=== PATIENT | female | born 1940 | race Caucasian/White ===

== ENCOUNTER 2021-10-12 10:09 | Outpatient (CLI) | payer MEDICARE, OTHER, SELFPAY ==
--- NOTE | 2021-10-12 10:20 | CT_ITS ---
WS: [id number] CT CHEST WITH INTRAVENOUS CONTRAST HISTORY: LUNG NODULE TECHNIQUE: Contiguous 5 mm axial imaging performed on the thorax. Coronal and sagittal reformats are submitted. All CT scans at [facility] use at least one of these dose optimization techniques: automated exposure control; mA and/or kV adjustment per patient size (includes targeted exams where dose is matched to clinical indication); or iterative reconstruction. CONTRAST: Omnipaque 350; 95 mL IV. DLP: 674.93 mGy.cm COMPARISON: 11/13/2016 Lungs and central airway: Long-term stability ovoid and slightly lobulated nodule LEFT lower lobe wit h a maximum diameter of 14 mm. Stable nodules along the RIGHT major and minor fissures. Pleura: Normal. No pleural effusion. Heart and pericardium: Mildly enlarged heart. There is a small circumferential pericardial effusion w hich has progressed in size since the prior study. Effusion measures up to 6 mm. Moderate coronary ar opal atherosclerotic plaque. Mediastinum and melissa: No mediastinum or hilar adenopathy. Vessels: Moderate atherosclerosis aorta. Pulmonary artery size is normal. No filling defects proximal ly. Chest wall and lower neck: No soft tissue masses. Upper abdomen: Visualized gallbladder is negative. 3 mm hypodense nodule in the periphery RIGHT lobe of the liver. No adrenal mass. There is a very large hiatal hernia. Greater than 50% of the stomach i s above the diaphragm. Diffuse fatty replacement of the pancreas. Previously described nodule in the pancreas is not well visualized today. Atherosclerotic plaque continues into the suprarenal aorta. Osseous structures: Diffuse osteopenia. Mild concave deformity superior endplate of T12. CT/CT chest w con* [id number] IMPRESSION: 1. Long-term stability 14 mm noncalcified nodule LEFT lower lobe. 2. Moderate atherosclerotic plaque within the coronary arteries and aorta. 3. Small circumferential pericardial effusion has increased since 2017. 4. Large hiatal hernia.
[2021-10-12] MEDS: iohexol 350 mg/mL 100 mL Btl IV (10:42)
[2021-10-12 11:00] LABS: Blood Urea Nitrogen 10 mg/dL (8-23)
== END 2021-10-12 10:10 | disposition home or self-care (01) ==
LOC: RAD 10:14
PROVIDERS: Radiology Neuroradiology; PCP Family Medicine; Visit Provider Family Medicine
DX: R91.1 Solitary pulmonary nodule (principal); I25.10 Atherosclerotic heart disease of native coronary artery without angina pectoris; I31.3 Pericardial effusion (noninflammatory); K44.9 Diaphragmatic hernia without obstruction or gangrene
CPT/HCPCS: 71260; 82565; 84520

== ENCOUNTER 2021-11-08 13:14 | Outpatient (CLI) | payer MEDICARE, OTHER, SELFPAY ==
--- NOTE | 2021-11-08 13:26 | XR_ITS ---
WS: [id number] DEXA (DUAL ENERGY X-RAY ABSORPTIOMETRY) Bone mineral density was performed using a [employer] machine. HISTORY: POSTMENOPAUSAL COMPARISON: 02/05/2019 Lumbar spine BMD (L1-L4): 1.371 g/cm2 T score: 1.6 Z score: 3.4 Left forearm BMD: 0.877 g/cm2. T score: 0.0 Z score: 2.7 RIGHT hip BMD: 0. 891 g/cm2. T score: 0.9 Z score: 1.0 10 year probability of a major osteoporotic fracture is 13.4%. Compared to the prior study from 02/05/2019. Lumbar spine bone mineral density has increased by 3.2%. Bilateral hips bone mineral density has decreased by 1.5%. LEFT forearm bone mineral density has decreased by 1.6%. XR/XR DEXA axial skeleton* [id number] IMPRESSION: NORMAL BONE MINERAL DENSITY based upon the WHO classification for females. Significant increase in bone mineral density within the lumbar spine. No change otherwise.
--- NOTE | 2021-11-08 13:27 | USCV_ITS ---
Geoffrey Haven Age: 80 Gender: F : 1940 Exam Date: 11/08/2021 14:06 Ordering Phys: Trent Veras MD Technologist: Exam Location: [facility] [place] Indication: percardial effusion BP: 110 / 67 HR: 60 Rhythm: Sinus Technical Quality: MEASUREMENTS (Male / Female) Normal Values 2D ECHO LV Diastolic Diameter PLAX 4.2 cm 4.2 - 5.9 / 3.9 - 5.3 cm LV Systolic Diameter PLAX 2.8 cm IVS Diastolic Thickness 0.9 cm 0.6 - 1.0 / 0.6 - 0.9 cm IVS Systolic Thickness 1.4 cm LVPW Diastolic Thickness 0.9 cm 0.6 - 1.0 / 0.6 - 0.9 cm LVPW Systolic Thickness 1.1 cm LVOT Diameter 2.0 cm LV Ejection Fraction 2D Teich 61.2 % LV Ejection Fraction MOD 2C 60.6 % LV Ejection Fraction 2C AL 60.6 % LA Diameter 4.2 cm Aorta at Sinotubular Diameter 2.3 cm IVC Diameter 1.9 cm M-MODE Aortic Annulus Diameter 3.1 cm LA Ao Ratio MM 1.5 MV E Point Septal Separation 1.1 cm DOPPLER AV Peak Velocity 116.0 cm/s LVOT Peak Velocity 104.0 cm/s AV Area Cont Eq vti 3.3 cm squared AV Area Cont Eq pk 2.9 cm squared MV Area PHT 5.0 cm squared Mitral E to A Ratio 0.9 MV E' Velocity 60.0 cm/s Mitral E to MV E' Ratio 14.0 Mitral E to LV E' Lateral Ratio 13.7 Mitral E to LV E' Septal Ratio 14.4 TR Peak Velocity 189.0 cm/s TR Peak Gradient 14.3 mmHg TV Peak E Velocity 63.0 cm/s Right Atrial Pressure 3.0 mmHg Pulmonary Artery Systolic Pressu 17.3 mmHg PV Peak Velocity 94.0 cm/s FINDINGS Left Ventricle Normal left ventricular size. LV systolic function is normal with EF of 60-65%. No regional wall motion abnormalities. Normal disatolic function Right Ventricle The right ventricle is normal in size and function. Right Atrium The right atrium is normal in size. Left Atrium The left atrium is normal in size. Mitral Valve Structurally normal mitral valve without significant stenosis or prolapse. There is mild mitral regurgitation. Aortic Valve Structurally normal aortic valve without significant sclerosis or stenosis. There is mild aortic regurgitation. Tricuspid Valve Structurally normal tricuspid valve without significant stenosis. Trace tricuspid regurgitation. Insufficient TR jet to calculate RVSP Pulmonic Valve Structurally normal pulmonic valve without significant stenosis. There is no pulmonic regurgitation. Pericardium Small sized pericardial effusion Aorta Normal ascending aorta dimension. IVC CONCLUSIONS LV systolic function is normal with EF of 60-65% Normal diastolic function Mild mitral regurgitation Mild aortic regurgitation Trace tricuspid regurgitation Small sized pericardial effusion is seen Compared to prior echocardiogram from 2017, patient has small sized pericardial effusion, mild aortic and mild mitral regurgitation. Margarito Valles MD (Electronically Signed) Final Date: 18 Nov 2021 23:22 S
== END 2021-11-08 13:15 | disposition home or self-care (01) ==
LOC: RAD 13:18
PROVIDERS: PCP Family Medicine; Visit Provider Family Medicine
DX: Z78.0 Asymptomatic menopausal state (principal)
CPT/HCPCS: 77080; 93306

== ENCOUNTER 2022-01-28 03:25 | Inpatient (IN) | payer MEDICARE, OTHER, SELFPAY ==
[2022-01-28] VITALS (14 sets, daily range): BP systolic 97–173; BP diastolic 54–85; PULSE 65–99; RESP 16–22; TEMP 36.7–38.8; O2SAT 88–98; BMI 26.8
--- NOTE | 2022-01-28 03:27 | XRR_ITS ---
PROCEDURE INFORMATION: Exam: XR Chest Exam date and time: 01/28/2022 3:37 AM Age: 81 years old Clinical indication: Cough and fever; Patient HX: Congestion x 3 weeks with worsening cough TECHNIQUE: Imaging protocol: Radiologic exam of the chest. Views: 1 view. COMPARISON: CT chest w con* [id number] 10/12/2021 10:55 AM FINDINGS: Lungs: Patchy airspace opacities in the mid and lower left lung. Pleural spaces: Unremarkable. No pleural effusion. No pneumothorax. Heart/Mediastinum: Moderate hiatal hernia. Bones/joints: Unremarkable. XR/XR chest 1V portable [id number] IMPRESSION: Pneumonia in the mid and lower left lung.
--- NOTE | 2022-01-28 03:41 | ED_ITS ---
HPI - Nausea/Vomiting/Diarrhea General: Chief complaint: Nausea/Vomiting/Diarrhea Stated complaint: Shaking, fever, N/V Time Seen by Provider: 01/28/22 03:26 Source: patient Mode of arrival: ambulatory Limitations: no limitations History of Present Illness: 81-year-old female states that she has had cough congestion over the last 2 weeks. States she saw her PCP 2 weeks ago started on antibiotics which she is finished states that over the last 2 days especially tonight her cough is worsened. She is also febrile here with body aches. She states she has had nausea and vomiting tonight as well. Denies any worsening improving factors denies any abdominal or chest pain. Associated nausea: Yes Associated symtoms: Reports nausea; Denies chest pain, dysuria or headache(s) Review of Systems Const: Reports: fever(s), chills and body aches; Denies: change in appetite Eyes: Denies: blurry vision or eye discomfort ENMT: Denies: throat pain or dental pain Card: Denies: chest pain Resp: Reports: non-productive cough; Denies: dyspnea GI: Reports: nausea and vomiting; Denies: abdominal pain or diarrhea : Denies: dysuria Musc: Denies: neck pain or back pain Skin/Breast: Denies: rash Neuro: Denies: headache(s) Psych: Denies: depression Mando/Lymph: Denies: easy bruising All/Imm: Denies: urticaria PFSH ED PFSH: Medical History (Updated 01/28/22 @ 04:12 by Lazaro Arellano MD) No pertinent past medical history Social History (Updated 01/28/22 @ 03:42 by Lazaro Arellano MD) Substance/Drug Use: never Physical Exam Const: COMMON NORMALS: patient oriented x3 GENERAL APPEARANCE: ill appearin g HENMT: COMMON NORMALS: normocephalic and atraumatic HEAD & SCALP: normocephalic and atraumatic Eye: COMMON NORMALS: Equal, round and reactive pupils present and EOMs intact bilaterally PUPIL: Yes Equal, round and reactive pupils present Neck/C-Spine: COMMON NORMALS: full ROM and supple Chest: COMMONS NORMALS: normal inspection of the chest and normal palpation of entire chest wall Resp: COMMON NORMALS: No retractions and No use of accessory muscles EFFORT & INSPECTION: Yes respiratory distress AUSCULTATION: rales on the left Cardio: COMMON NORMALS: regular rate, regular rhythm and No murmurs present (Cardio) RATE: regular rate RHYTHM: regular rhythm GI: COMMON NORMALS: Normal to inspection, nondistended, normoactive bowel sounds present, Soft to palpation, non-tender and no masses PALPATION: Yes Soft to palpation Extremity: COMMON NORMALS: normal to inspection and full ROM Neuro: COMMON NORMALS: patient oriented x3, moves all extremities and no focal motor deficits Psych: COMMON NORMALS: mental status grossly normal, Normal thought process present and cooperative THOUGHT PROCESS: Normal thought process present Skin: COMMON NORMALS: no rashes or lesions noted and no wounds GENERAL SKIN EXAM: no rashes or lesions noted Course Vital Signs: Vital signs: Vital Signs Temperature 101.9 F H 01/28/22 03:26 Pulse Rate 99 01/28/22 03:26 Respiratory Rate 22 H 01/28/22 03:26 Blood Pressure 173/85 01/28/22 03:26 Pulse Oximetry 90 01/28/22 03:26 Oxygen Delivery Me thod 01/28/22 03:26 MDM - Nausea/Vomiting/Diarrhea Medical Decision Making Patient presents with cough fever x-ray does show a left upper lobe pneumonia patient has some hypoxia as well spoke to hospitalist will admit patient started on IV antibiotics. Lab Data : 01/28/22 03:40 01/28/22 03:40 Laboratory Results WBC 24.4 10^3/uL (4.0-10.0) H 01/28/22 03:40 RBC 5.18 10^6/uL (4.1-5.3) 01/28/22 03:40 Hgb 11.5 g/dL (11.5-15.3) 01/28/22 03:40 Hct 38.4 % (37.0-47.0) 01/28/22 03:40 MCV 74.1 fl (81-99) L 01/28/22 03:40 MCH 22.2 pg (28.0-34.0) L 01/28/22 03:40 MCHC 29.9 g/dL (30.0-36.0) L 01/28/22 03:40 RDW 22.8 % (12.1-15.1) H 01/28/22 03:40 Plt Count 396 10^3/cmm (130-400) 01/28/22 03:40 MPV 9.6 fL (7.4-10.4) 01/28/22 03:40 Neut % (Auto) 82.3 % 01/28/22 03:40 Lymph % (Auto) 13.7 % 01/28/22 03:40 Faulkner % (Auto) 2.5 % 01/28/22 03:40 Eos % (Auto) 0.5 % 01/28/22 03:40 Baso % (Auto) 0.3 % 01/28/22 03:40 Neut # (Auto) 20.08 10^3/uL (1.8-7.7) H 01/28/22 03:40 Lymph # (Auto) 3.3 10^3/uL (0.8-4.8) 01/28/22 03:40 Faulkner # (Auto) 0.6 10^3/uL (0.2-0.9) 01/28/22 03:40 Eos # (Auto) 0.1 10^3/uL (0.0-0.8) 01/28/22 03:40 Baso # (Auto) 0.1 10^3/uL (0.0-0.1) 01/28/22 03:40 Nucleated RBC % (auto) 0 % 01/28/22 03:40 Nucleated RBCs # 0.0 /100WBC 01/28/22 03:40 Sodium 140 mmol/L (136-145) 01/28/22 03:40 Potassium 3.8 mmol/L (3.5-5.1) 01/28/22 03:40 Chloride 101 mmol/L (98-107) 01/28/22 03:40 Carbon Dioxide 26 mmol/L (22-29) 01/28/22 03:40 Anion Gap 16.8 (5-19) 01/28/22 03:40 BUN 15 mg/dL (8-23) 01/28/22 03:40 Creatinine 0.8 mg/dL (0.5-0.9) 01/28/22 03:40 GFR Calculation Not Reportable 01/28/22 03:40 Glucose 131 mg/dL (65-115) H 01/28/22 03:40 Calculated Osmolality 293 mOsm/kg (285-295) 01/28/22 03:40 Lactate 2.1 mmol/L (0.5-2.2) 01/28/22 03:40 Calcium 9.1 mg/dL (8.5-10.5) 01/28/22 03:40 Total Bilirubin 0.3 mg/dL (0.15-1.2) 01/28/22 03:40 AST 20 U/L (0-32) 01/28/22 03:40 ALT 12 U/L (0-33) 01/28/22 03:40 Alkaline Phosphatase 79 IU/L (35-105) 01/28/22 03:40 Total Protein 6.7 g/dL (6.6-8.7) 01/28/22 03:40 Albumin 3.8 g/dL (3.5-5.2) 01/28/22 03:40 Globulin 2.9 g/dL (1.3-4.6) 01/28/22 03:40 Lipase 28 U/L (13-60) 01/28/22 03:40 SARS-CoV-2 Ag (Rapid) Negative (Negative) 01/28/22 03:34 Discharge Plan Discharge Patient Disposition: Admitted As Inpatient Clinical Impression: Acute respiratory failure with hypoxia Pneumonia Qualifiers: Pneumonia type: due to unspecified organism Laterality: left Lung location: upper lobe of lung Qualified Code(s): J18.9 - Pneumonia, unspecified organism Coding Level of Care Code ED Vibrating Screed Operator for Leigha Fwd Exam Comprehensive
[2022-01-28] MEDS: ondansetron 2 mg/ML SDV 2 mL 4 MG IVP (03:45)
[2022-01-28 03:46] LABS: Basophils # 0.1 10^3/uL (0.0-0.1); Basophils % 0.3 %; Eosinophils # 0.1 10^3/uL (0.0-0.8); Eosinophils % 0.5 %; Hematocrit 38.4 % (37.0-47.0); Hemoglobin 11.5 g/dL (11.5-15.3); Lymphocytes # 3.3 10^3/uL (0.8-4.8); Lymphocytes % 13.7 %; Mean Corpuscular HGB Conc 29.9 g/dL (30.0-36.0); Mean Corpuscular Hemoglobin 22.2 pg (28.0-34.0); Mean Corpuscular Volume 74.1 fl (81-99); Mean Platelet Volume 9.6 fL (7.4-10.4); Monocytes # 0.6 10^3/uL (0.2-0.9); Monocytes % 2.5 %; Neutrophils # 20.08 10^3/uL (1.8-7.7); Neutrophils % 82.3 %; Nucleated Red Blood Cells % 0 %; Platelet Count 396 10^3/cmm (130-400); Red Blood Count 5.18 10^6/uL (4.1-5.3); Red Cell Distribution Width 22.8 % (12.1-15.1); White Blood Count 24.4 10^3/uL (4.0-10.0)
[2022-01-28] MEDS: acetaminophen 500 mg Tablet 1000 MG PO (03:47)
[2022-01-28] MEDS: sodium chloride 0.9% 1,000 ML 999 ML IV (03:47)
[2022-01-28 04:04] LABS: Lactate (Lactic Acid level) 2.1 mmol/L (0.5-2.2)
[2022-01-28 04:06] LABS: SARS Covid-2 Antigen Negative (Negative)
[2022-01-28 04:06] LABS: Alanine Aminotransferase 12 U/L (0-33); Albumin Level 3.8 g/dL (3.5-5.2); Alkaline Phosphatase 79 IU/L (35-105); Anion Gap 16.8 (5-19); Aspartate Amino Transferase 20 U/L (0-32); Blood Urea Nitrogen 15 mg/dL (8-23); Calcium 9.1 mg/dL (8.5-10.5); Carbon Dioxide 26 mmol/L (22-29); Chloride 101 mmol/L (98-107); Globulin 2.9 g/dL (1.3-4.6); Glucose 131 mg/dL (65-115); Lipase 28 U/L (13-60); Osmolality Calculated 293 mOsm/kg (285-295); Potassium 3.8 mmol/L (3.5-5.1); Sodium 140 mmol/L (136-145); Total Bilirubin 0.3 mg/dL (0.15-1.2); Total Protein 6.7 g/dL (6.6-8.7)
[2022-01-28] MEDS: cefTRIAXone 1,000 MG in sodium chloride 0.9% (plus) 50 ML 100 MG IV (05:14)
[2022-01-28 05:33] LABS: Add Urine Microscopic? NO; Charge for UA Resulting for Rev
[2022-01-28 05:34] LABS: Bilirubin Urine Neg (Negative); Blood Urine Neg (Negative); Glucose Urine UA Norm (Normal); Ketones Urine Negative (Negative); Leukocyte Esterase Urine Negative (Negative); Nitrate Urine Negative (Negative); Protein Urine Neg (Negative); Specific Gravity, Urine 1.005 (1.005-1.030); Urine Appearance Clear (CLEAR); Urine Color Yellow (Yellow); Urobilinogen Urine Neg (Negative); pH Urine 7 (5-7)
[2022-01-28] MEDS: azithromycin 500 MG in sodium chloride 0.9% 250 ML 250 MG IV (05:48)
[2022-01-28 05:49] LABS: Procalcitonin 0.08 ng/mL (0-0.5)
[2022-01-28 05:53] LABS: Thyroid Stimulating Hormone 4.86 uIU/mL (0.27-4.20)
--- NOTE | 2022-01-28 05:53 | PM.HP ---
Providers/Chief Complaint Primary Care Provider: Trent Veras MD Chief Complaint: Shaking, fever, N/V History of Present Illness Haven Hale is a 81 year old female with past medical history of CVA, TIA, atrial fibrillation, osteoporosis, GERD, hiatal hernia, anemia, hypertension, C. difficile in 2016, pericardial effusion 10/13 presented to the ER today complaining of a cough and congestion over the last 2 weeks. She says she saw her primary care doctor 2 weeks ago and was started on antibiotics that she has already finished however she has been worsening and therefore decided to come to the ER. She is also afebrile and having generalized body aches. Patient was also having chills at home. Her boyfriend was sick with upper respiratory infection recently and got treated with antibiotics outpatient. She states he got better but she did not. She does not know what antibiotic he got but she was on doxycycline. She states she also takes blood pressure medication and a baby aspirin including a lot of other medications but does not have her list with her. She sees Dr. Veras as an outpatient. Daughter states they will bring the medications in from home and they will notify us when they are here. Of note patient was also treated for a bleeding ulcer and was hospitalized at [facility] in [facility]. We will request for records. On arrival to ER blood pressure 173/85, respiratory 22, pulse 99, temperature 1.9, saturating 90% on room air. Chest x-ray showed left upper and middle lobe pneumonia. WBC 22,000. Lactic acid 2.1. COVID swab result pending. Most recent echo October 2021: LVEF 60 to 65%, normal diastolic function, mild mitral regurgitation, mild aortic regurgitation. Small size pericardial effusion is seen. Medications/Allergies Allergies Allergy/AdvReac Type Severity Reaction Status Date / Time Penicillins Allergy ALGY-Rash Verified 01/28/22 03:37 PFSH Acute PFSH: Medical History (Updated 01/28/22 @ 04:12 by Lazaro Arellano MD) No pertinent past medical history Social History (Updated 01/28/22 @ 03:42 by Lazaro Arellano MD) Substance/Drug Use: never Vitals/I&O/Wt Last Vital Signs Temp 99.9 F H 01/28/22 05:19 Pulse 75 01/28/22 05:19 Resp 22 H 01/28/22 05:19 BP 98/59 01/28/22 05:19 Pulse Ox 91 01/28/22 04:07 O2 Del Method 01/28/22 05:19 Weight last 48 hrs Weight 64.41 kg Physical Exam Narrative: General: Alert oriented x3, patient seen sitting up in bed appearing comfortable at this time on 2 L nasal cannula. HEENT: Normocephalic, atraumatic, EOMI, breathing normally, no acute distress. Does cough during conversation. Cardio: Regular rate rhythm, normal S1-S2 Respiratory: CTA bilaterally with Rales at left lower base GI: Abdomen soft, nontender, nondistended, bowel sounds + Extremities: No lower extremity edema Data : 01/28/22 03:40 01/28/22 03:40 A&P Assessment and plan (1) Pneumonia: Status: Acute Qualifiers: Laterality: left Lung location: upper lobe of lung Pneumonia type: due to unspecified organism Qualified Code(s): J18.9 - Pneumonia, unspecified organism (2) Acute respiratory failure with hypoxia: Status: Acute Plan #Multilobar pneumonia #History of CVA, TIA #History of atrial fibrillation #Osteoporosis #GERD #Hiatal hernia #Chronic anemia, iron deficiency #Hypertension #History of pericardial effusion ? Check bacterial antigen Legionella, strep, check procalcitonin ? DuoNeb every 6 hours as needed ? Tylenol for fever ? Ceftriaxone and azithromycin ? Check MRSA nares ? Sputum culture gram stain, blood culture, urine culture ? Continue supplemental oxygen and wean as able ? Family will bring medications in from home. Please confirm them. Patient does not remember any at this time. Full code DVT prophylaxis Heparin subcu Attestations Medical Necessity Statement*: Patient will cross greater than 2 midnights for management of multilobar pneumonia Coding Level of Care Code Acute Conference Services Director for [facility] Fwd Diagnoses Pneumonia J18.9 Laterality: left Lung location: upper lobe of lung Pneumonia type: due to unspecified organism Acute respiratory failure with hypoxia J96.01
[2022-01-28] MEDS: heparin 5,000 unit/mL INJ 1 mL 5000 UNIT SUBCUT (10:15)
--- NOTE | 2022-01-28 16:44 | PM.MISC ---
Miscellaneous Note Purpose of Documentation: 81 year old female with PMH of CVA, TIA, atrial fibrillation, osteoporosis, GERD, hiatal hernia, anemia, hypertension,small pericardial effusion came in with c/o cough and congestion over the last 2 weeks.? She says she saw her primary care doctor 2 weeks ago and was started on antibiotics that she has already finished however she has been worsening and therefore decided to come to the ER.? She was having generalized body pain,and chills at home. Today in the mooning, she was complaining of weakness as well as SOB, noted TmAX:101.9 , saturating well on 2ls oxygen through [place]. Urine Legionella antigen is negative, sputum Gram stain: Rare Gm positive Cocci in pairs. Her other Vitals and labs have been reviewed.
[2022-01-28] MEDS: vancomycin 1,000 MG in sodium chloride 0.9% 250 ML 250 MG IV (18:45)
[2022-01-29] VITALS: BP 123/66; PULSE 65; RESP 16; TEMP 36.7; O2SAT 97
[2022-01-29 04:05] VITALS: BP 117/62; PULSE 56; RESP 16; TEMP 36.8; O2SAT 99
[2022-01-29] MEDS: cefTRIAXone 1,000 MG in sodium chloride 0.9% (plus) 50 ML 100 MG IV (04:15)
[2022-01-29] MEDS: azithromycin 500 MG in sodium chloride 0.9% 250 ML 250 MG IV (05:21)
[2022-01-29 06:21] LABS: Basophils # 0.1 10^3/uL (0.0-0.1); Basophils % 0.3 %; Eosinophils # 0.3 10^3/uL (0.0-0.8); Eosinophils % 1.3 %; Hematocrit 26.2 % (37.0-47.0); Hemoglobin 8.3 g/dL (11.5-15.3); Lymphocytes # 7.6 10^3/uL (0.8-4.8); Lymphocytes % 33.4 %; Mean Corpuscular HGB Conc 31.7 g/dL (30.0-36.0); Mean Corpuscular Hemoglobin 22.4 pg (28.0-34.0); Mean Corpuscular Volume 70.8 fl (81-99); Mean Platelet Volume 10.5 fL (7.4-10.4); Monocytes % 4.2 %; Neutrophils # 13.75 10^3/uL (1.8-7.7); Neutrophils % 60.2 %; Nucleated Red Blood Cells % 0 %; Platelet Count 255 10^3/cmm (130-400); Red Cell Distribution Width 22.6 % (12.1-15.1); White Blood Count 22.9 10^3/uL (4.0-10.0)
[2022-01-29 06:36] LABS: Alanine Aminotransferase < 5 U/L (0-33); Albumin Level 2.9 g/dL (3.5-5.2); Alkaline Phosphatase 63 IU/L (35-105); Anion Gap 11.1 (5-19); Aspartate Amino Transferase 15 U/L (0-32); Blood Urea Nitrogen 10 mg/dL (8-23); Calcium 8.3 mg/dL (8.5-10.5); Carbon Dioxide 25 mmol/L (22-29); Chloride 109 mmol/L (98-107); Globulin 2.5 g/dL (1.3-4.6); Glucose 99 mg/dL (65-115); Magnesium 1.9 mg/dL (1.7-2.3); Osmolality Calculated 291 mOsm/kg (285-295); Potassium 4.1 mmol/L (3.5-5.1); Sodium 141 mmol/L (136-145); Total Bilirubin 0.2 mg/dL (0.15-1.2); Total Protein 5.4 g/dL (6.6-8.7)
[2022-01-29 08:00] VITALS: BP 127/64; PULSE 61; PULSE 67; RESP 16; RESP 17; TEMP 36.7; O2SAT 91; O2SAT 95
[2022-01-29] MEDS: enoxaparin 40 mg/0.4 mL Syringe SUBCUT (08:46)
--- NOTE | 2022-01-29 12:00 | P.DS_ITS ---
Discharge Providers Date of Admission: 01/28/22 04:16 Date of Discharge: January 29, 2022 Attending Provider at Admission: Marine Joshi MD Attending Provider at Discharge: Wilian Anthony MD Primary Care Provider: Trent Veras MD Diagnoses at Discharge Discharge Diagnosis (1) Pneumonia: Status: Acute Qualifiers: Laterality: left Lung location: upper lobe of lung Pneumonia type: due to unspecified organism Qualified Code(s): J18.9 - Pneumonia, unspecified organism (2) Acute respiratory failure with hypoxia: Status: Acute (3) Hypertension: Status: Acute (4) Anemia: Status: Acute Reason for Visit Reason for Visit: Shaking, fever, N/V Hospital Course Hospital Course Haven Hale is a 81 year old female with past medical history of CVA, TIA, atrial fibrillation, osteoporosis, GERD, hiatal hernia, anemia, hypertension, C. difficile in 2016, pericardial effusion 10/13 presented to the ER today complaining of a cough and congestion over the last 2 weeks.? She says she saw her primary care doctor 2 weeks ago and was started on antibiotics that she has already finished however she has been worsening and therefore decided to come to the ER.? She is also afebrile and having generalized body aches.? Patient was also having chills at home.? Her boyfriend was sick with upper respiratory infection recently and got treated with antibiotics outpatient.? She states he got better but she did not.? She does not know what antibiotic he got but she was on doxycycline.? She states she also takes blood pressure medication and a baby aspirin including a lot of other medications but does not have her list with her.? She sees Dr. Veras as an outpatient.? Daughter states they will bring the medications in from home and they will notify us when they are here.? Of note patient was also treated for a bleeding ulcer and was hospitalized at [facility] in [facility].? We will request for records. On arrival to ER blood pressure 173/85, respiratory 22, pulse 99, temperature 1.9, saturating 90% on room air.? Chest x-ray showed left upper and middle lobe pneumonia.? WBC 22,000.? Lactic acid 2.1.? COVID swab result pending. Most recent echo October 2021: LVEF 60 to 65%, normal diastolic function, mild mitral regurgitation, mild aortic regurgitation.? Small size pericardial effusion is seen. Patient admitted to hospital further evaluation and management. She started on broad-spectrum antibiotics for multilobar pneumonia. Blood culture remain negative sputum culture came back positive for GPC in pairs. Patient responded well to the treatment and has been off oxygen for more than 24 hours. She is able to have complete conversation without any difficulty in breathing or cough. Patient repeat blood work showed persistent leukocytosis with anemia with hemoglobin of 8.5. It is believed patient's admitting hemoglobin level of 11 was dehydrated blood work as well. Patient denies having any hematemesis or melena. As patient was doing well on room air both on rest and exertion she has been discharged on oral antibiotics with 5-day course of doxycycline and Levaquin. She is advised to follow-up with her primary care provider within next 1 week for repeat CBC. Physical Exam Narrative: General: Alert oriented x3, patient seen sitting up on RA HEENT: Normocephalic, atraumatic, EOMI, breathing normally, no acute distress. Does cough during conversation. Cardio: Regular rate rhythm, normal S1-S2 Respiratory: CTA bilaterally with Rales at left lower base GI: Abdomen soft, nontender, nondistended, bowel sounds + Extremities: No lower extremity edema Discharge Data Studies Completed and Pending Completed Studies During Hospitalization Category Date Time Status XR chest 1V portable [id number] Urgent Exams 01/28/22 03:27 Completed Pending at discharge Category Date Time Status B12 [Vitamin B12] Routine Lab 01/29/22 05:45 Received Blood Culture Stat Lab 01/28/22 06:00 Results COVID OZH [Coronavirus PCR] Routine Lab 01/29/22 11:40 Uncollected Complete Blood Count w/Auto AM LABS Lab 01/30/22 04:00 Ordered Comprehensive Metabolic Panel AM LABS Lab 01/30/22 04:00 Ordered Folate Level Routine Lab 01/29/22 11:41 Received Hemoglobin A1C AM LABS Lab 01/30/22 04:00 Ordered Lipid Profile w/VLDL Routine Lab 01/30/22 04:00 Ordered MRSA by PCR Stat Lab 01/28/22 12:04 Received Rapid Flu A&B Swab [Influenza A&B by IFA] Routine Lab 01/29/22 11:41 Uncollected Sputum Culture and Gram Stain Stat Lab 01/28/22 14:00 Results TIBC [Total Iron Binding Capacity] Routine Lab 01/29/22 05:45 Received Radiology Impressions Chest X-Ray 01/28/22 03:27 IMPRESSION: Pneumonia in the mid and lower left lung. Laboratory Results WBC 22.9 10^3/uL (4.0-10.0) H 01/29/22 05:45 RBC 3.70 10^6/uL (4.1-5.3) L 01/29/22 05:45 Hgb 8.3 g/dL (11.5-15.3) L 01/29/22 05:45 Hct 26.2 % (37.0-47.0) L D 01/29/22 05:45 MCV 70.8 fl (81-99) L 01/29/22 05:45 MCH 22.4 pg (28.0-34.0) L 01/29/22 05:45 MCHC 31.7 g/dL (30.0-36.0) D 01/29/22 05:45 RDW 22.6 % (12.1-15.1) H 01/29/22 05:45 Plt Count 255 10^3/cmm (130-400) D 01/29/22 05:45 MPV 10.5 fL (7.4-10.4) H 01/29/22 05:45 Neut % (Auto) 60.2 % 01/29/22 05:45 Lymph % (Auto) 33.4 % 01/29/22 05:45 Rankin % (Auto) 4.2 % 01/29/22 05:45 Eos % (Auto) 1.3 % 01/29/22 05:45 Baso % (Auto) 0.3 % 01/29/22 05:45 Neut # (Auto) 13.75 10^3/uL (1.8-7.7) H 01/29/22 05:45 Lymph # (Auto) 7.6 10^3/uL (0.8-4.8) H 01/29/22 05:45 Rankin # (Auto) 1.0 10^3/uL (0.2-0.9) H 01/29/22 05:45 Eos # (Auto) 0.3 10^3/uL (0.0-0.8) 01/29/22 05:45 Baso # (Auto) 0.1 10^3/uL (0.0-0.1) 01/29/22 05:45 Nucleated RBC % (auto) 0 % 01/29/22 05:45 Nucleated RBCs # 0.0 /100WBC 01/29/22 05:45 Sodium 141 mmol/L (136-145) 01/29/22 05:45 Potassium 4.1 mmol/L (3.5-5.1) 01/29/22 05:45 Chloride 109 mmol/L (98-107) H 01/29/22 05:45 Carbon Dioxide 25 mmol/L (22-29) 01/29/22 05:45 Anion Gap 11.1 (5-19) 01/29/22 05:45 BUN 10 mg/dL (8-23) 01/29/22 05:45 Creatinine 0.6 mg/dL (0.5-0.9) 01/29/22 05:45 GFR Calculation Not Reportable 01/29/22 05:45 Glucose 99 mg/dL (65-115) 01/29/22 05:45 Calculated Osmolality 291 mOsm/kg (285-295) 01/29/22 05:45 Lactate 2.1 mmol/L (0.5-2.2) 01/28/22 03:40 Calcium 8.3 mg/dL (8.5-10.5) L 01/29/22 05:45 Magnesium 1.9 mg/dL (1.7-2.3) 01/29/22 05:45 Total Bilirubin 0.2 mg/dL (0.15-1.2) 01/29/22 05:45 AST 15 U/L (0-32) 01/29/22 05:45 ALT < 5 U/L (0-33) 01/29/22 05:45 Alkaline Phosphatase 63 IU/L (35-105) 01/29/22 05:45 Total Protein 5.4 g/dL (6.6-8.7) L 01/29/22 05:45 Albumin 2.9 g/dL (3.5-5.2) L 01/29/22 05:45 Globulin 2.5 g/dL (1.3-4.6) 01/29/22 05:45 Lipase 28 U/L (13-60) 01/28/22 03:40 Procalcitonin 0.08 ng/mL (0-0.5) 01/28/22 03:40 TSH 4.86 uIU/mL (0.27-4.20) H 01/28/22 03:40 Urine Color Yellow (Yellow) 01/28/22 05:23 Urine Appearance Clear (CLEAR) 01/28/22 05:23 Urine pH 7 (5-7) 01/28/22 05:23 Ur Specific [place] 1.005 (1.005-1.030) 01/28/22 05:23 Urine Protein Neg (Negative) 01/28/22 05:23 Urine Glucose (UA) Norm (Normal) 01/28/22 05:23 Urine Ketones Negative (Negative) 01/28/22 05:23 Urine Blood Neg (Negative) 01/28/22 05:23 Urine Nitrate Negative (Negative) 01/28/22 05:23 Urine Bilirubin Neg (Negative) 01/28/22 05:23 Urine Urobilinogen Neg mg/dL (Negative) 01/28/22 05:23 Ur Leukocyte Esterase Negative (Negative) 01/28/22 05:23 SARS-CoV-2 Ag (Rapid) Negative (Negative) 01/28/22 03:34 Microbiology 01/28/22 14:00 Sputum - Expectorated Sputum Gram Stain - Final 01/28/22 14:00 Sputum - Expectorated Sputum Sputum Culture - Preliminary 01/28/22 13:04 Urine,Clean Catch Bacterial Antigens - Final 01/28/22 06:00 Blood Blood Culture - Preliminary NEGATIVE TO DATE 01/28/22 06:00 Blood Blood Culture - Preliminary NEGATIVE TO DATE 01/28/22 05:23 Urine,Clean Catch Legionella Urinary Antigen - Final Vitals Last Vital Signs Temp 98.1 F 01/29/22 08:00 Pulse 67 01/29/22 08:00 Resp 16 01/29/22 08:00 BP 127/64 01/29/22 08:00 Pulse Ox 95 01/29/22 08:00 O2 Del Method 01/29/22 08:00 O2 Flow Rate 1 01/28/22 20:00 Discharge Plan Discharge Patient Disposition: Home Condition: Stable Prescriptions: New doxycycline hyclate 100 mg capsule 100 mg PO BID 5 Days Qty: 10 0RF levofloxacin 500 mg tablet 500 mg PO Q24H 5 Days Qty: 5 0RF ferrous gluconate 324 mg (37.5 mg iron) tablet 324 mg PO BID Qty: 60 0RF sucralfate [Carafate] 100 mg/mL suspension 1 g PO BID 56 Days Qty: 1120 0RF Continued amlodipine 2.5 mg tablet 2.5 mg PO DAILY pantoprazole 40 mg tablet,delayed release (DR/EC) 40 mg PO BID aspirin 81 mg Tablet,Chewable 81 mg PO DAILY montelukast 10 mg tablet 10 mg PO DAILY pravastatin 20 mg tablet 20 mg PO DAILY Changed metoprolol succinate 50 mg tablet extended release 24 hr 25 mg PO DAILY Qty: 30 0RF Discharge Orders: Discharge Order (Routine); Ordered 01/29/22 Ordered By: Wilian Anthony Other Ambulatory Orders: Complete Blood Count w/Auto (Routine) Timeframe: 1 Week Location: Determined by Patient Ordered By: Wilian Anthony Referrals: Trent Veras MD [Primary Care Provider] - 03/06/22 12:00 pm Discharge Diet: Regular Discharge Activity: Resume usual activity and Increase activity as tolerated Patient Instructions: Opioid Safety Activity Restrictions/Additional Instructions: Please follow-up with a primary care provider within next 1 week for repeat CBC. Doxycycline Levaquin at the antibiotic which you should take for next 5 days. Please watch for any hematemesis or melena. Continue taking your iron pills are discussed in detail. Discharge Attestations Time Spent in Discharge Care*: greater than 30 min Specific Discharge Activities: educating patient, educating and/or supporting family/caregiver, discussing with bilingual case manager/social workers/dc planners, documenting/other paperwork and evaluating patient/reviewing data Status at Discharge: Cognitive status at discharge: cognitively intact , Behavioral status at discharge: cooperative , Functional status at discharge: independent ambulation , Overall status at discharge: patient is back to [facility] Quality Metrics Clinical Quality Measures [ No reported AMI, CVA or VTE this stay] Coding Level of Care Code Acute [facility] DC note Diagnoses Pneumonia J18.9 Laterality: left Lung location: upper lobe of lung Pneumonia type: due to unspecified organism Acute respiratory failure with hypoxia J96.01 Hypertension I10 Anemia D64.9
[2022-01-29 12:47] LABS: Folate Level 19.1 ng/mL (4.8-37.3)
[2022-01-29 12:48] LABS: Iron 18 ug/dL (37-145); Percent Saturation 7.6 % (20-50); Total Iron Binding Capacity 236 mcg/dl; Unsaturated Iron Binding 218 ug/dL (112-347)
[2022-01-29 13:04] LABS: Vitamin B12 238 pg/mL (232-1245)
== END 2022-01-29 15:45 | disposition home or self-care (01) | DRG 193 ==
LOC: ER 04:40 → MEDSURG 05:48
PROVIDERS: Admitting Provider Internal Medicine; Emergency Provider Emergency Medicine; PCP Family Medicine; Visit Provider Student in an Organized Health Care Education/Training Program
DX: J18.9 Pneumonia, unspecified organism (principal); J96.01 Acute respiratory failure with hypoxia; Z86.73 Personal history of transient ischemic attack (TIA), and cerebral infarction without residual deficits; I48.91 Unspecified atrial fibrillation; M81.0 Age-related osteoporosis without current pathological fracture; K21.9 Gastro-esophageal reflux disease without esophagitis; K44.9 Diaphragmatic hernia without obstruction or gangrene; D50.9 Iron deficiency anemia, unspecified; I10 Essential (primary) hypertension; I08.0 Rheumatic disorders of both mitral and aortic valves; Z79.82 Long term (current) use of aspirin
CPT/HCPCS: 36415; 71045; 80053; 81003; 82607; 82746; 83540; 83550; 83605; 83690; 83735; 84145; 84443; 85025; 86403; 87040; 87070; 87205; 87426; 87449; 87641; 94664; 96365; 96372; 96375; 99285; J0456; J0696; J1644; J1650; J2405; J3370; J7030; J7050

== ENCOUNTER 2022-06-04 20:00 | Outpatient (CLI) | payer MEDICARE, OTHER, SELFPAY | END 2022-06-04 20:01 | disposition home or self-care (01) | LOC: SLEEP 06-05 08:12 | PROVIDERS: PCP Internal Medicine; Visit Provider Internal Medicine | DX: G47.33 Obstructive sleep apnea (adult) (pediatric) (principal) | CPT/HCPCS: 95810 ==

== ENCOUNTER 2022-06-06 13:44 | Outpatient (CLI) | payer MEDICARE, OTHER, SELFPAY ==
--- NOTE | 2022-06-06 13:58 | XRR_ITS ---
PROCEDURE INFORMATION: Exam: XR Left Shoulder Exam date and time: 06/06/2022 1:59 PM Age: 81 years old Clinical indication: Pain; Shoulder; Left; Additional info: Pain in left shoulder TECHNIQUE: Imaging protocol: Radiologic exam of the Left shoulder. Views: 2 or more views. COMPARISON: CR (CHEST, ) 01/28/2022 3:37 AM FINDINGS: Bones/joints: There is no evidence for acute fracture or malalignment. There is osteopenia. There is osteophyte formation off the medial left humeral head. Soft tissues: Normal. XR/XR shoulder LT min 2V* [id number] IMPRESSION: There are no acute concerning abnormalities. If there is desire for further evaluation, a MRI could be performed.
== END 2022-06-06 13:45 | disposition home or self-care (01) ==
PROVIDERS: PCP Internal Medicine; Visit Provider Internal Medicine
DX: M25.512 Pain in left shoulder (principal)
CPT/HCPCS: 73030

== ENCOUNTER 2022-06-11 07:08 | Outpatient (CLI) | payer MEDICARE, OTHER, SELFPAY ==
--- NOTE | 2022-06-11 07:23 | USCV_ITS ---
Haven Hale Age: 81 Gender: F : 1940 Exam Date: 06/11/2022 07:35 Ordering Phys: Carline Bustos MD Technologist: Awilda Busby [place]am [place] [facility] [place]ication: Memory Loss Risk Factors: Unknown Previous Vascular Surgery: None Right Brachial BP: / Left Brachial BP: / Right Left Velocity (cm/s) Spectral Plaque Velocity (cm/s) Spectral Plaque Syst/Diast Broadening Syst/Diast Broadening 79.70/ 18.30 Prox CCA 55.60 / 11.90 66.00/ 18.30 Mid CCA 65.90 / 12.70 67.80/ 11.00 Distal CCA 61.90 / 11.90 56.70/ 19.20 Prox ICA 80.90 / 20.60 69.70/ 17.60 Mid ICA 53.20 / 17.50 50.40/ 15.10 Distal ICA 41.40 / 15.20 47.50 ECA 78.60 1.06 ICA/CCA 1.23 Antegrade Vertebral Antegrade 38.70/ 13.90 cm/s 38.00/ 11.20 cm/s Bi Subclavian Tri 89.70 107.9 0 FINDINGS Comparison:. 01/14/14. No significant elevation of systolic or diastolic velocities. Waveforms are normal. Mild bilateral scattered calcified plaque and intimal thickening throughout the common carotid arteries and extending through the bifurcation. Mild progression of atherosclerotic plaque. Antegrade vertebral arteries. CONCLUSIONS Bilateral ICA stenosis less than 50%. Mild bilateral carotid atherosclerotic plaque. Mild progression since 2013. Dr. Waleska Hanson DO (Electronically Signed) Final Date: 11 June 2022 09:14 S
== END 2022-06-11 07:09 | disposition home or self-care (01) ==
LOC: RAD 07:11
PROVIDERS: PCP Internal Medicine; Visit Provider Internal Medicine
DX: R41.3 Other amnesia (principal); I65.23 Occlusion and stenosis of bilateral carotid arteries
CPT/HCPCS: 93880

== ENCOUNTER 2022-06-11 07:08 | Outpatient (CLI) | payer MEDICARE, OTHER, SELFPAY ==
--- NOTE | 2022-06-11 11:00 | MR_ITS ---
WS: [id number] MRI HEAD WITHOUT CONTRAST TECHNIQUE: Sagittal T1, T2 axial, T2 axial FLAIR, axial and coronal T1 images, axial susceptibility w eighted imaging, axial diffusion weighted images, and coronal T2 images were obtained. CLINICAL INFORMATION: MEMORY LOSS COMPARISON: CT FINDINGS: No evidence of restricted diffusion to suggest acute ischemia. Ventricular system and basal cisterns are patent. Moderate small vessel changes. Moderate parenchymal volume loss. Normal posterior fossa. Normal vascular flow voids at the skull base. No extra-axial fluid collections. No evidence of mass o r mass effect. Chronic lacunar infarcts in the bilateral basal ganglia. Prominent perivascular spaces . Chronic lacunar infarct LEFT caudate. Mild mucosal thickening in the ethmoid air cells. Mastoid air cells are well aerated. Normal posterio r nasopharynx and parapharyngeal fat. No hemosiderin on the susceptibly weighted images. Normal optic chiasm and pituitary infundibulum. Mi ld symmetric atrophy temporal lobes and hippocampal formations. MR/MR head wo con* [id number] IMPRESSION: 1. No evidence of restricted diffusion to suggest acute ischemia. 2. Moderate small vessel changes with moderate parenchymal volume loss. Progre ssed compared to the MRI in 2012. 3. Chronic lacunar infarcts in the bilateral basal ganglia and LEFT caudate. 4. No hemosiderin on the susceptibly weighted images. 5. Mild symmetric atrophy temporal lobes and hippocampal formations.
== END 2022-06-11 07:09 | disposition home or self-care (01) ==
LOC: RAD 07:11
PROVIDERS: PCP Internal Medicine; Visit Provider Internal Medicine
DX: R41.3 Other amnesia (principal); I65.23 Occlusion and stenosis of bilateral carotid arteries
CPT/HCPCS: 70551; 93880

== ENCOUNTER 2022-08-15 06:55 | Outpatient (CLI) | payer MEDICARE, OTHER, SELFPAY ==
--- NOTE | 2022-08-15 08:00 | MR_ITS ---
WS: [id number] MRI LEFT SHOULDER HISTORY: PAIN IN LEFT SHOULDER COMPARISON: Radiograph 06/06/2022 TECHNIQUE: Multiplanar sequences of the shoulder joint are submitted. Moderate AC joint arthritis. AC joint is narrowed with osteophytes and small erosions along the artic ular surfaces. Mild osteophyte encroachment upon the supraspinatus. No high-grade subacromial impinge ment. Small amount of fluid in the subacromial and subdeltoid bursa. No os acromion. Abnormal biceps tendon. There is a large amount of increased fluid along the biceps tendon sheath abn ormal appearance of the biceps tendon at the bicipital groove. The tendon is thickened and heterogene ous. There is a well-circumscribed variable signal mass measuring 14 x 10 mm near the bicipital groov e. Suspect this is probably an osteophyte from the humeral head displacing the biceps tendon. There i s a very thin biceps tendon is draped over this ovoid masslike structure. Severe glenohumeral joint narrowing. There is osteophytic ridging around the humeral head loss of car tilage involving the humeral head and the glenoid. Very slightly high riding humeral head. Marrow jelani ma in the humeral head. Small joint effusion surrounding the humeral head. Diffusely abnormal labrum. Moderate atrophy of the supraspinatus and subscapularis muscles. Insertion site tear of the supraspin atus tendon. Moderate-sized tear without retraction. Infraspinatus tendon appears intact. Abnormal si gnal in the distal subscapularis tendon. There is increased T2 signal extending throughout several ce ntimeters of the distal tendon consistent with fluid. This typically is noted with the tear. The tend on is also thickened. Increase fluid in the subscapularis recess. MR/MR shoulder LT wo con* [id number] IMPRESSION: 1. 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 2. Moderate AC joint arthritis. 3. Abnormal biceps tendon. Biceps tenosynovitis with abnormal signal in the bi cipital groove. Displacing the biceps tendon from the bicipital groove is what is probably a humeral head osteophyte measuring 14 x 10 mm. Biceps tendon is be ing displaced with tendinopathy. 4. Insertion site tear supraspinatus tendon with mild atrophy. 5. Marked tendinopathy involving the mid to distal subscapularis tendon. There is intrasubstance fluid suggesting there is a tear. Mild atrophy of the muscle . 6. Abnormal labral intrasubstance degeneration.
== END 2022-08-15 06:56 | disposition home or self-care (01) ==
LOC: RAD 06:56
PROVIDERS: PCP Internal Medicine; Visit Provider Internal Medicine
DX: M19.012 Primary osteoarthritis, left shoulder (principal)
CPT/HCPCS: 73221

== ENCOUNTER 2022-09-11 12:59 | Outpatient (CLI) | payer MEDICARE, OTHER, SELFPAY ==
--- NOTE | 2022-09-11 13:10 | CT_ITS ---
WS: [id number] CT ABDOMEN PELVIS TECHNIQUE: Contrast-enhanced CT of the abdomen and pelvis with coronal and sagittal reformatted image s. CLINICAL INFORMATION: ABDOMINAL PAIN, GENERALIZED COMPARISON: MRI abdomen January 23, [address] December 25, 2015 DLP: 425.[address] scans at [facility] use at least one of these dose optimization techniques: automated e xposure control; mA and/or kV adjustment per patient size (includes targeted exams where dose is matc hed to clinical indication); or iterative reconstruction. FINDINGS: Enhancing irregular spiculated lesion RIGHT adnexa with heterogeneous enhancing nodularity measuring approximately 6.6 x 4.3 x 3.8 cm suspicious for ovarian neoplasm. This can be further evaluated with ultrasound. Surrounding satellite nodularity directly abuts the traversing sigmoid colon with some ev idence of tethering and fistulization. Small volume perihepatic and perisplenic ascites. Nodular peritoneal thickening in the ventral abdome n suspicious for peritoneal carcinomatosis. Enhancing nodular soft tissue implants along the RIGHT gr eater than LEFT diaphragm suspicious for metastatic disease. 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 Most of the perihepat ic fluid appears to represent simple ascites. Tiny cyst RIGHT hepatic lobe. Portal vein and splenic v ein are patent. Fatty atrophy of the pancreas. Large esophageal hiatal hernia with partial intrathoracic stomach in the LEFT lower mediastinum. Smal l pericardial effusion. Small LEFT pleural effusion with compressive atelectasis LEFT lower lobe. Non calcified LEFT lower lobe pulmonary nodule measuring 13 x 16 mm unchanged. Tiny nodules in the RIGHT middle lobe and RIGHT lower lobe. RIGHT basilar atelectasis. Normal caliber abdominal aorta. Mild aortic calcification. Celiac and SMA are patent. Adrenal glands are normal. Normal renal parenchymal enhancement. No hydronephrosis. A few prominent lymph nodes in t he upper abdomen and zunilda hepatis. Increased density in the cystic duct may represent sludge. No gal lbladder inflammation. Common bile duct appears normal. Sigmoid diverticulosis. No evidence of acute diverticulitis. Colon is decompressed. Advanced spondylitic changes lumbar spine. Slight anterolisthesis L3 on L4. Di sc space narrowing worse at L4-L5. Mild chronic compression superior endplate at T12. LEFT CHARLIE.Eviden ce of prior hysterectomy. CT/CT abdomen pelvis w con* [id number] IMPRESSION: 1. Suspected peritoneal carcinomatosis with nodularity in the ventral abdomen. Enhancing soft tissue implants along the undersurface of the diaphragm RIGHT g reater than LEFT. 2. Irregular spiculated enhancing RIGHT adnexal lesion with cystic and solid e nhancing components suspicious for neoplasm. This can be further evaluated with ultrasound. 3. Spiculated components of the adnexal mass abuts the sigmoid colon in the cu l-de-sac with tethering and fistulization best visualized on the sagittal imagi ng. 4. Small LEFT pleural effusion. 5. A few tiny nodules in the RIGHT lung partially visualized. 6. Small pericardial effusion. 7. Large hiatal hernia with partial intrathoracic stomach appears progressed c ompared to 2016. 8. Extensive colonic diverticulosis. No evidence of acute diverticulitis. 9. LEFT lower lobe pulmonary nodule measuring 13 x 16 mm unchanged since October 12, 2021 Notified Carline Bustos MD at 09/11/2022 3:29 PM.
[2022-09-11 14:24] LABS: Blood Urea Nitrogen 9 mg/dL (8-23)
[2022-09-11] MEDS: iohexol 350 mg/mL 500 mL Btl (per mL) IV (14:37)
[2022-09-11 14:52] LABS: Basophils # 0.1 10^3/uL (0.0-0.1); Basophils % 0.8 %; Eosinophils # 0.2 10^3/uL (0.0-0.8); Eosinophils % 1.6 %; Hematocrit 39.4 % (37.0-47.0); Lymphocytes # 2.7 10^3/uL (0.8-4.8); Lymphocytes % 24.8 %; Mean Corpuscular HGB Conc 30.5 g/dL (30.0-36.0); Mean Corpuscular Hemoglobin 26.9 pg (28.0-34.0); Mean Corpuscular Volume 88.3 fl (81-99); Mean Platelet Volume 9.8 fL (7.4-10.4); Monocytes # 1.1 10^3/uL (0.2-0.9); Monocytes % 9.7 %; Neutrophils # 6.85 10^3/uL (1.8-7.7); Neutrophils % 62.6 %; Nucleated Red Blood Cells % 0 %; Platelet Count 397 10^3/cmm (130-400); Red Blood Count 4.46 10^6/uL (4.1-5.3)
[2022-09-11 15:27] LABS: Alanine Aminotransferase 12 U/L (0-33); Albumin Level 3.6 g/dL (3.5-5.2); Alkaline Phosphatase 85 U/L (35-105); Amylase 27 U/L (28-100); Anion Gap 15.8 (5-19); Aspartate Amino Transferase 20 U/L (0-32); Blood Urea Nitrogen 9 mg/dL (8-23); Calcium 8.5 mg/dL (8.5-10.5); Carbon Dioxide 24 mmol/L (22-29); Chloride 100 mmol/L (98-107); Globulin 3.4 g/dL (1.3-4.6); Glucose 91 mg/dL (65-115); Iron 30 ug/dL (37-145); Lipase 23 U/L (13-60); Osmolality Calculated 280 mOsm/kg (285-295); Percent Saturation 12.6 % (20-50); Potassium 3.8 mmol/L (3.5-5.1); Sodium 136 mmol/L (136-145); Total Bilirubin 0.4 mg/dL (0.15-1.2); Total Iron Binding Capacity 238 mcg/dl; Unsaturated Iron Binding 208 ug/dL (112-347)
[2022-09-11 15:31] LABS: INR 1.04 (0.8-1.2)
[2022-09-11 15:56] LABS: Carcinoembryonic Antigen 1.7 ng/mL (0.0-4.7)
[2022-09-11 16:45] LABS: CA 125 376.1 U/mL (0-35)
== END 2022-09-11 13:00 | disposition home or self-care (01) ==
PROVIDERS: PCP Internal Medicine; Visit Provider Internal Medicine
DX: R10.84 Generalized abdominal pain (principal); K57.90 Diverticulosis of intestine, part unspecified, without perforation or abscess without bleeding; K44.9 Diaphragmatic hernia without obstruction or gangrene; I31.39 Other pericardial effusion (noninflammatory); R91.8 Other nonspecific abnormal finding of lung field; J90 Pleural effusion, not elsewhere classified
CPT/HCPCS: 36415; 74177; 80053; 82150; 82378; 82565; 83540; 83550; 83690; 84520; 85025; 85610; 86304; Q9967

== ENCOUNTER 2023-05-14 09:27 | Outpatient (CLI) | payer MEDICARE, OTHER, SELFPAY ==
--- NOTE | 2023-05-14 09:42 | CT_ITS ---
WS: [id number] CT NECK TECHNIQUE: Contrast-enhanced CT of the neck with coronal and sagittal reformatted images. CLINICAL INFORMATION: DYSPHAGIA, PHARYNGEAL PHASE COMPARISON: None. DLP: 121.[address] scans at [facility] use at least one of these dose optimization techniques: automated e xposure control; mA and/or kV adjustment per patient size (includes targeted exams where dose is matc hed to clinical indication); or iterative reconstruction. FINDINGS: Normal posterior nasopharynx. Normal parapharyngeal fat. Submandibular glands are normal. Lobulated L EFT submandibular gland. Normal parotid glands. Paranasal sinuses are well aerated. Mastoid air cells are well aerated. Heterogeneous lobulated thyroid gland RIGHT greater than LEFT. Exaggeration of the normal cervical lordosis. Slight retrolisthesis C3 on C4. Prior cervical fusion C4-C6 appears solid. Slight anterolisthesis C6 on C7 and C7 on T1. No evidence supraglottic or glottic mass. Normal epiglo ttis. Normal subglottic airway.Lung apices are well aerated. Tortuous innominate artery which remains patent. Proximal subclavian arteries are patent. Mild carotid bulb calcification. No cervical lymphadenopathy. IMPRESSION: 1. No cervical lymphadenopathy. 2. No evidence of supraglottic or glottic mass. Normal subglottic airway. 3. Heterogeneous nodular thyroid RIGHT greater than LEFT. This can be followed up with ultrasound. 4. Prior cervical fusion appears solid. 5. No other acute findings.
--- NOTE | 2023-05-14 09:42 | FL_ITS ---
WS: [id number] ESOPHAGRAM TECHNIQUE: Double contrast examination was performed with thin and thick barium. Upright and [place] imag es were obtained. CLINICAL INFORMATION: DYSPHAGIA, PHARYNGEAL PHASE COMPARISON: None. FINDINGS: No evidence of aspiration or penetration. Moderate esophageal dysmotility with tertiary con tractions and delayed emptying. Tertiary contractions with stricture in the distal esophagus just abo ve the gastroesophageal junction likely due to reflux with minimal luminal diameter measuring 5.2 mm. Associated thin shelflike esophageal web. Large esophageal hiatal hernia similar to the prior CT abdomen pelvis 09/11/2022 with partial intratho racic stomach. Evidence of esophagitis and gastritis. No evidence of aspiration or penetration. Swallowing: No evidence of aspiration or penetration. Esophagus: Moderate esophageal dysmotility with tertiary contractions. Peptic stricture in the distal esophagus with minimal luminal diameter approx imately 5.2 mm Gastroesophageal reflux: Present to the upper thoracic esophagus at the thoracic inlet fluoroscopy time: 3min [id number] IMPRESSION: 1. Large esophageal hiatal hernia with partial intrathoracic stomach and reflux to the thoracic inle t on the upright and supine imaging. 2. Evidence of esophagitis and gastritis. 3. Tertiary contractions with irregular corkscrewlike stricture in the distal esophagus above the GE junction with minimal luminal diameter 5.2 mm. This could be further evaluated with endoscopy. 4. Moderate esophageal dysmotility with tertiary contractions and delayed emptying on the upright a nd supine imaging in the thoracic esophagus 5. No aspiration or penetration.
[2023-05-14 10:12] LABS: Blood Urea Nitrogen 11 mg/dL (8-23)
[2023-05-14] MEDS: iohexol 350 mg/mL 500 mL Btl (per mL) IV (10:29)
== END 2023-05-14 09:28 | disposition home or self-care (01) ==
LOC: RAD 09:28
PROVIDERS: PCP Internal Medicine; Visit Provider Otolaryngology
DX: K44.9 Diaphragmatic hernia without obstruction or gangrene (principal); K22.4 Dyskinesia of esophagus; K22.2 Esophageal obstruction; K21.00 Gastro-esophageal reflux disease with esophagitis, without bleeding; R13.13 Dysphagia, pharyngeal phase; E04.1 Nontoxic single thyroid nodule; Z98.1 Arthrodesis status
CPT/HCPCS: 70491; 74220; 82565; 84520; Q9967

== ENCOUNTER 2023-09-23 08:52 | Outpatient (CLI) | payer MEDICARE, OTHER, SELFPAY ==
--- NOTE | 2023-09-23 09:00 | XR_ITS ---
WS: [id number] Examination: XR chest 2V* [id number] Reason for Exam: COUGH Date: September 23, 2023 Comparison: January 28, 2022 Findings: The heart is enlarged. The mediastinum is not widened. The melissa are not enlarged. There is a left-sided Port-A-Cath. There is no pulmonary edema. There is no pleural effusion. The lungs are hyperinflated. There is minimal scar or infiltrate noted in the left costophrenic angle A moderate-sized hiatal hernia is present. Impression: There is cardiomegaly without failure There is minimal left basilar areas of scarring or infiltrate
== END 2023-09-23 08:53 | disposition home or self-care (01) ==
LOC: RAD 08:55
PROVIDERS: PCP Internal Medicine; Visit Provider Nurse Practitioner Family
DX: R05.9 Cough, unspecified (principal); I51.7 Cardiomegaly
CPT/HCPCS: 71046

== ENCOUNTER 2023-10-17 13:12 | Outpatient (CLI) | payer MEDICARE, OTHER, SELFPAY ==
--- NOTE | 2023-10-17 13:15 | CT_ITS ---
WS: [id number] CT CHEST, ABDOMEN AND PELVIS WITH CONTRAST HISTORY: MALIGNANT NEOPLASM OF RIGHT OVARY, COUGH TECHNIQUE: Contiguous 5 mm axial imaging performed through the chest, abdomen and pelvis with IV cont rast, oral contrast has been provided. Coronal and sagittal reformats chest. Coronal and sagittal ref ormats through the abdomen and pelvis. All CT scans at [facility] use at least one of these d ose optimization techniques: automated exposure control; mA and/or kV adjustment per patient size (in cludes targeted exams where dose is matched to clinical indication); or iterative reconstruction. CONTRAST: Omnipaque 350; 100 mL IV. DLP: 659.63 mGy.cm COMPARISON: 09/11/2022, 10/12/[address]: Low lung volumes due to poor inspiration. No new pulmonary mass or nodule. Ovoid 14 mm nonc alcified nodule LEFT lower lobe is identified and stable over multiple prior years. RIGHT perifissura l nodule is stable. No pneumonia. No pericardial or pleural effusions. Mild atherosclerosis aorta. No rmal size pulmonary artery. Large portion of the stomach is intrathoracic. Abdomen CT: Normal size liver. There are 2 hypodensities in the RIGHT lobe of the liver which were al so present on 09/11/2022. These are too small to characterize. Portal vein is normal. Normal spleen an d gallbladder. Fatty replacement of the pancreas. No adrenal mass. Normal kidneys. Mild atheroscleros is aorta. No small bowel obstruction. Moderate diffuse constipation. Numerous sigmoid diverticula without acute diverticulitis. No ascites or adenopathy. Pelvic CT: No free fluid and no adenopathy. Normal urinary bladder. Degenerative changes throughout the lower thoracic and lumbar spine. L3 anterolisthesis by 5 mm. No d estructive lytic or sclerotic changes. Prior LEFT hip arthroplasty. IMPRESSION: 1. Long-term stability 14 mm noncalcified nodule LEFT lower lobe. Lung volumes are decreased due to poor inspiration. No pneumonia. 2. No mediastinal or hilar adenopathy. No adenopathy in the abdomen or pelvis. 3. No ascites or mesenteric implants. 4. Sigmoid diverticulosis without acute diverticulitis. 5. Large hiatal hernia.
[2023-10-17] MEDS: iohexol 350 mg/mL 500 mL Btl (per mL) PO (13:41)
[2023-10-17 14:21] LABS: Blood Urea Nitrogen 13 mg/dL (8-23)
[2023-10-17] MEDS: iohexol 350 mg/mL 500 mL Btl (per mL) IV (14:28)
== END 2023-10-17 13:13 | disposition home or self-care (01) ==
LOC: RAD 13:12
PROVIDERS: Radiology Neuroradiology; PCP Internal Medicine; Visit Provider Nurse Practitioner Family
DX: C56.1 Malignant neoplasm of right ovary (principal); R05.9 Cough, unspecified; R91.1 Solitary pulmonary nodule; K57.30 Diverticulosis of large intestine without perforation or abscess without bleeding; K44.9 Diaphragmatic hernia without obstruction or gangrene
CPT/HCPCS: 71260; 74177; 82565; 84520; Q9967

== ENCOUNTER 2024-01-13 15:30 | Outpatient (CLI) | payer MEDICARE, OTHER, SELFPAY ==
--- NOTE | 2024-01-13 15:38 | CT_ITS ---
WS: [id number] CT CHEST, ABDOMEN AND PELVIS WITH CONTRAST HISTORY: LEFT LOWER QUADRANT PAIN, MALIGNANT NEOPLASM RIGHT OVARY, history of ovarian cancer. TECHNIQUE: Contiguous 5 mm axial imaging performed through the chest, abdomen and pelvis with IV cont rast, oral contrast has been provided. Coronal and sagittal reformats chest. Coronal and sagittal ref ormats through the abdomen and pelvis. All CT scans at [facility] use at least one of these d ose optimization techniques: automated exposure control; mA and/or kV adjustment per patient size (in cludes targeted exams where dose is matched to clinical indication); or iterative reconstruction. CONTRAST: Omnipaque 350; 100 mL IV. DLP: 769.58 mGy.cm COMPARISON: 10/17/2023, 09/11/2022, 02/28/[address]: Lung volumes are decreased due to poor inspiration. Dependent atelectasis in the lower lung wong. Long-term stability of a slightly lobulated, noncalcified nodule in the LEFT lower lobe donnell uring 13 x 10 mm. Nodule has been present and stable since 2016. No new mass or pulmonary nodule. No mediastinal or hilar adenopathy. Atherosclerosis thoracic aorta. Normal size pulmonary artery. Heart is slightly enlarged with a small pericardial effusion. The heart is being slightly displaced anterio rly by a large hiatal hernia. Hiatal hernia contains oral contrast and does appear slightly more prom inent as compared to 10/17/2023. LEFT subclavian Mediport. Abdomen CT: Too small to characterize hypodensities within the liver are unchanged. No mass or bile d uct dilatation. Normal portal vein. Gallbladder is contracted with no adjacent inflammation. Normal c ommon bile duct. Fatty replacement of the pancreas. No pancreatic duct dilatation. Normal spleen. No adrenal mass. No renal obstruction. Moderate atherosclerotic plaque throughout the abdominal aorta. M ild atherosclerosis of the mesenteric arteries. No small bowel obstruction. There is a single loop of mildly dilated small bowel loop in the central abdomen similar to 09/11/2022. This does appear to be a large small bowel diverticulum no associated m ass is identified. Mild diffuse constipation throughout the colon. Prior appendectomy. Advanced diver ticular burden throughout the mid to distal colon. No acute diverticulitis. No abscess. Pelvic CT: Prior hysterectomy. No ascites or adenopathy within the pelvis. Advanced degenerative scol iosis and spondylosis within the thoracic and lumbar spines. Disc spaces are narrowed and desiccated. Prior LEFT hip arthroplasty. CT/CT chest abdpel w/*[id number] IMPRESSION: 1. No metastatic disease identified within the chest, abdomen or pelvis. 2. Advanced diverticular burden throughout the mid to distal colon. No evidenc e for acute diverticulitis. 3. No mass or ascites in the LEFT lower quadrant. 4. No GI tract obstruction. 5. Long-term stability noncalcified LEFT lower lobe pulmonary nodule measuring 13 x 10 mm. 6. Prior hysterectomy and appendectomy. 7. Large hiatal hernia has slightly increased in size since 10/17/2023. 8. Small, unchanged pericardial effusion.
[2024-01-13] MEDS: iohexol 350 mg/mL 500 mL Btl (per mL) PO (15:42)
[2024-01-13] MEDS: iohexol 350 mg/mL 500 mL Btl (per mL) IV (16:37)
== END 2024-01-13 15:31 | disposition home or self-care (01) ==
LOC: RAD 15:30
PROVIDERS: PCP Internal Medicine; Visit Provider Obstetrics & Gynecology Gynecologic Oncology
DX: R10.32 Left lower quadrant pain (principal); C65.1 Malignant neoplasm of right renal pelvis; J98.11 Atelectasis; R91.1 Solitary pulmonary nodule; K44.9 Diaphragmatic hernia without obstruction or gangrene; K86.89 Other specified diseases of pancreas; K59.09 Other constipation; Z98.890 Other specified postprocedural states; M41.54 Other secondary scoliosis, thoracic region; M41.56 Other secondary scoliosis, lumbar region; M47.814 Spondylosis without myelopathy or radiculopathy, thoracic region; M47.816 Spondylosis without myelopathy or radiculopathy, lumbar region
CPT/HCPCS: 71260; 74177; Q9967

== ENCOUNTER 2024-01-13 15:56 | Oncology outpatient (recurring) (ONCR) | payer MEDICARE, OTHER, SELFPAY | END 2024-01-22 23:59 | disposition home or self-care (01) | PROVIDERS: PCP Internal Medicine; Visit Provider Internal Medicine Medical Oncology | DX: Z45.2 Encounter for adjustment and management of vascular access device (principal) | CPT/HCPCS: 96523 ==

== ENCOUNTER 2024-03-31 14:43 | Outpatient (CLI) | payer MEDICARE, OTHER, SELFPAY ==
--- NOTE | 2024-03-31 14:51 | USCV_ITS ---
Haven Hale Age: 83 Gender: F : 1940 Exam Date: 03/31/2024 15:25 Ordering Phys: Carline Bustos MD Technologist: CT Exam Location: [facility] [place] Indication: BP: / HR: 52 Rhythm: Sinus Technical Quality: Adequate MEASUREMENTS (Male / Female) Normal Values 2D ECHO LVOT Diameter 2.2 cm LV Ejection Fraction MOD 4C 59.6 % LV Ejection Fraction MOD 2C 67.4 % LV Ejection Fraction 2C AL 70.2 % LA Diameter 3.5 cm RA Systolic Volume 4C AL 44.9 ml RA Systolic Volume 4C MOD 44.5 ml LA Sys Volume AL 62.6 cm cubed Aorta at Sinotubular Diameter 2.4 cm IVC Diameter 1.7 cm M-MODE LA Ao Ratio MM 1.6 AV Cusp Separation MM 2.5 cm DOPPLER AV Peak Velocity 114.0 cm/s LVOT Peak Velocity 87.0 cm/s AV Area Cont Eq vti 2.8 cm squared AV Area Cont Eq pk 3.0 cm squared MV Peak Velocity 108.0 cm/s MV Area PHT 2.9 cm squared Mitral E to A Ratio 0.9 TR Peak Velocity 133.0 cm/s TR Peak Gradient 7.1 mmHg TV Peak E Velocity 53.0 cm/s Right Atrial Pressure 3.0 mmHg Pulmonary Artery Systolic Pressu 10.1 mmHg PV Peak Velocity 82.0 cm/s FINDINGS Left Ventricle Normal left ventricular size, systolic function and wall thickness, with no regional wall motion abnormalities. Left ventricular ejection fraction is estimated at 60 %. Grade I/IV diastolic dysfunction (abnormal relaxation filling pattern), normal to mildly elevated filling pressures. Right Ventricle The right ventricle is normal in size and function. Right Atrium The right atrium is normal in size. Left Atrium Moderately increased left atrial size. Mitral Valve Moderately thickened mitral valve. No mitral valve stenosis. Trace mitral valve regurgitation. Aortic Valve Moderate aortic valve calcification. No aortic valve stenosis. Trace aortic valve regurgitation. Tricuspid Valve Structurally normal tricuspid valve without significant stenosis or regurgitation. Pulmonary artery systolic pressure is normal. Pulmonic Valve Structurally normal pulmonic valve without significant stenosis. There is no pulmonic regurgitation. Pericardium Normal pericardium without effusion. Aorta Normal ascending aorta dimension. IVC The inferior vena cava appears normal. CONCLUSIONS Normal left ventricular size, systolic function and wall thickness, with no regional wall motion abnormalities. Left ventricular ejection fraction is estimated at 60 %. Grade I/IV diastolic dysfunction (abnormal relaxation filling pattern), normal to mildly elevated filling pressures. Moderately increased left atrial size. Moderately thickened mitral valve. No mitral valve stenosis. Trace mitral valve regurgitation. Right atrial pressure is around 5 mm of mercury. Kellie Ordoñez MD (Electronically Signed) Final Date: 01 April 2024 07:20 S
== END 2024-03-31 14:44 | disposition home or self-care (01) ==
LOC: RAD 14:46
PROVIDERS: PCP Internal Medicine; Visit Provider Internal Medicine
DX: I50.30 Unspecified diastolic (congestive) heart failure (principal); I51.7 Cardiomegaly; I34.81 Nonrheumatic mitral (valve) annulus calcification; I70.0 Atherosclerosis of aorta; I31.39 Other pericardial effusion (noninflammatory)
CPT/HCPCS: 93306

== ENCOUNTER 2024-10-12 14:28 | Oncology outpatient (recurring) (ONCR) | payer MEDICARE, OTHER, SELFPAY | END 2024-10-21 23:59 | disposition home or self-care (01) | PROVIDERS: PCP Internal Medicine; Visit Provider Obstetrics & Gynecology Gynecologic Oncology | DX: Z53.9 Procedure and treatment not carried out, unspecified reason (principal); Z45.2 Encounter for adjustment and management of vascular access device | CPT/HCPCS: 96523 ==

== ENCOUNTER 2024-11-09 13:44 | Oncology outpatient (recurring) (ONCR) | payer MEDICARE, OTHER, SELFPAY | END 2024-11-21 23:59 | disposition home or self-care (01) | PROVIDERS: PCP Internal Medicine; Visit Provider Obstetrics & Gynecology Gynecologic Oncology | DX: Z45.2 Encounter for adjustment and management of vascular access device (principal); Z95.828 Presence of other vascular implants and grafts | CPT/HCPCS: 96523 ==

== ENCOUNTER 2025-04-13 16:05 | Outpatient (CLI) | payer MEDICARE, OTHER, SELFPAY ==
--- NOTE | 2025-04-13 16:25 | CTR_ITS ---
PROCEDURE INFORMATION: Exam: CT Neck With Contrast Exam date and time: 04/13/2025 5:03 PM Age: 84 years old Clinical indication: Other: Lymphadenopathy; Prior surgery; Surgery date: 6+ months; Surgery type: C spine; HX of ovarian cancer TECHNIQUE: Imaging protocol: Computed tomography of the neck with contrast. Radiation optimization: All CT scans at this facility use at least one of these dose optimization techniques: automated exposure control; mA and/or kV adjustment per patient size (includes targeted exams where dose is matched to clinical indication); or iterative reconstruction. Contrast material: OMNI 350; Contrast volume: 100 ml; Contrast route: INTRAVENOUS (IV); COMPARISON: CT neck w con* [id number] 05/14/2023 10:17 AM RADIATION DOSE METRICS: Total DLP (mGy-cm): 147.31 FINDINGS: Paranasal sinuses: Mild mucosal thickening in the right ethmoid air cells. No fluid levels. Salivary glands: Normal. Glands are normal in size. Teeth: Patient is edentulous. Pharynx: Unremarkable. No significant tonsillar enlargement. Larynx: Unremarkable. Epiglottis is normal. Thyroid: Atrophic thyroid. Trachea: Visualized trachea is unremarkable. Lungs: Unremarkable as visualized. Lymph nodes: Unremarkable. No lymphadenopathy. Vasculature: Mild calcifications of the carotid bulbs without hemodynamically significant stenosis. Bones/joints: Multilevel cervical spondylosis. Osseous fusion at C4-C5 and C5-C6. Slight grade 1 anterolisthesis at C6-C7. Diffuse osseous demineralization. Soft tissues: Unremarkable. No significant soft tissue swelling. CT/CT neck w con* [id number] IMPRESSION: No acute findings.
[2025-04-13] MEDS: iohexol 350 mg/mL 500 mL Btl (per mL) IV (17:19)
== END 2025-04-13 16:06 | disposition home or self-care (01) ==
PROVIDERS: PCP Internal Medicine; Visit Provider Internal Medicine
DX: R59.1 Generalized enlarged lymph nodes (principal); D39.11 Neoplasm of uncertain behavior of right ovary; C78.6 Secondary malignant neoplasm of retroperitoneum and peritoneum; J32.2 Chronic ethmoidal sinusitis; K08.9 Disorder of teeth and supporting structures, unspecified; E03.4 Atrophy of thyroid (acquired); I65.29 Occlusion and stenosis of unspecified carotid artery; M47.892 Other spondylosis, cervical region; M43.22 Fusion of spine, cervical region; M43.12 Spondylolisthesis, cervical region; M85.89 Other specified disorders of bone density and structure, multiple sites
CPT/HCPCS: 70491